=== PATIENT | female | born 1935 | race Caucasian/White ===

== ENCOUNTER → 2024-04-13 09:00 | Outpatient (REF) | payer MEDICARE, OTHER, SELFPAY ==
[2024-04-13 09:58] LABS: % Eosinophils 3.9 % (0-6); % Immature Granulocytes 0.2 % (0-0.5); % Lymphocytes 35.2 % (20.5-51.1); % Monocytes 7.7 % (1.7-9.3); Absolute Eosinophils 0.2 10^3/uL (0-0.7); Absolute Lymphocytes 1.5 10^3/uL (1.2-3.4); Absolute Monocytes 0.3 10^3/uL (0.1-0.6); Absolute Neutrophils 2.2 10^3/uL (1.4-6.5); Hematocrit 42.7 % (37.0-47.0); Hemoglobin 14.5 g/dL (12.0-16.0); Mean Corpuscular Volume 91.4 fL (81.0-99.0); Mean Platelet Volume 10.9 fL (7.4-10.4); Nucleated Red Blood Cells % 0 %; Platelet Count 136 10^3/uL (130-400); Red Blood Cell Count 4.67 10^6/uL (4.20-5.40); Red Cell Dist. Width 13.2 % (11.5-14.5); White Blood Cell Count 4.2 10^3/uL (4.8-10.8)
[2024-04-13 11:19] LABS: ALT (SGPT) 26 U/L (0-35); AST (SGOT) 37 U/L (14-36); Albumin 4.3 g/dl (3.5-5.0); Alkaline Phosphatase 52 U/L (38-126); Blood Urea Nitrogen 28 mg/dl (7-17); Calcium 10.1 mg/dl (8.4-10.2); Carbon Dioxide 31 mmol/L (22-30); Chloride 98 mmol/L (98-107); Glucose 91 mg/dl (70-99); HDL Cholesterol 64 mg/dl; LDL Cholesterol, Calculated 86 mg/dl; Potassium 4.4 mmol/L (3.5-5.1); Sodium 135 mmol/L (135-145); Total Bilirubin 0.7 mg/dl (0.2-1.3); Total Cholesterol 168 mg/dl (50-199); Total Protein 6.6 g/dl (6.3-8.2); Triglyceride 93 mg/dl (10-149); Very Low Density Lipoprotein 18 mg/dl (0-30); eGFR 40.05
[2024-04-13 11:38] LABS: TSH Reflex To Free T4 2.92 uIU/ml (0.47-4.68)
== END ==
LOC: REG 09:00
PROVIDERS: ATTENDING PHYSICIAN Internal Medicine
DX: I10 Essential (primary) hypertension (principal); I48.0 Paroxysmal atrial fibrillation; E78.2 Mixed hyperlipidemia; N18.32 Chronic kidney disease, stage 3b
CPT/HCPCS: 36415; 80053; 80061; 84443; 85025

== ENCOUNTER 2024-10-20 20:56 | Emergency (ER) | payer MEDICARE, OTHER, SELFPAY ==
[2024-10-20 21:03] VITALS: BP 137/59
[2024-10-20 21:14] VITALS: BMI 20.8
--- NOTE | 2024-10-20 22:12 | ED.GENMED ---
History of Present Illness
General
Chief Complaint: Fall
Source: patient and family (Daughter)
Exam Limitations: none
Time Seen by Provider: 10/20/24 22:03
Nursing documentation reviewed up to this point in time: agreed with
History of Present Illness
History of Present Illness:
88-year-old female with history as noted presents to the ER for evaluation after a fall. Patient was walking out of a restaurant with her family when she tripped on a curb and fell forward. She struck her face on the ground. She did not lose
consciousness. Family was able to help her to her feet, brought her to the emergency room to be evaluated. Patient had some transient epistaxis which has resolved; she has abrasions to her nose and chin and a laceration of her left eyebrow. She
has soreness in her nose and forehead but denies significant headache. Denies any neck pain. Denies any back pain. Denies any rib pain. Denies any abdominal pain. Denies any pain in her extremities. She normally walks with a cane. She is not
on any blood thinners.
Past History
Past History
ED Past Medical History: HTN
ED Past Surgical History: Tonsilectomy and Other (Left mastectomy)
Social History
Tobacco: Non-smoker
Alcohol: None
Personal:
Living: with family
Review of Systems
Review of Systems
All Other Systems: ROS reviewed and negative except as documented in HPI and ROS
EENT: Reports other (Nasal pain and swelling, transient epistaxis)
Respiratory: Denies trouble breathing
Cardiac: Denies chest pain
ABD/GI: Denies abdominal pain, nausea or vomiting
: Denies flank pain
Musculoskeletal: Denies joint pain, neck pain or back pain
Neurological: Denies dizzy or headache
Phy Exam
Physical Exam
Physical Exam:
General: Awake, alert, oriented x3; no acute distress
Head: Normocephalic, patient has 3 cm jagged laceration over the left eyebrow; abrasions on the nose and chin
Nose: She has swelling of the nasal bridge and tenderness to palpation; no septal hematoma, dried blood in nares but no active bleeding
Eyes: Conjunctiva normal, EOMI, pupils equal round and reactive to light bilaterally
Throat: Airway intact, handling secretions, tongue atraumatic, no signs of dental trauma
Neck: Trachea midline, no cervical spine tenderness
Back: No signs of trauma to the back or flank and no tenderness in the thoracic or lumbar spine
Lungs: Breathing comfortably with no distress
Heart: Regular rate; no chest wall tenderness
Abd: Soft, non distended, nontender
Neuro: No gross deficits
Skin: Lacerations and abrasions to the face as above; she has very minor abrasions to the knees
Extremities: Minor abrasions to the knees but no tenderness or swelling, rest of extremities are atraumatic without point tenderness and she allows for good range of motion at the upper and lower extremities without pain
Scores
Heart Failure Risk
Heart Failure Risk Score: Not Applicable
Heart Score for Chest Pain Patients
STEMI patient?: Not applicable
Withdrawal Assessment of Alcohol
Withdrawal Assessment Completed?: Not applicable
Course
Orders/Labs/Results
Orders:
Orders
10/20/24 22:05
CT Cervical Spine W/o Iv Contr Urgent
Comment:
Reason For Exam: fall with frontal trauma
CT Head W/o Iv Contrast Urgent
Comment:
Reason For Exam: fall with frontal trauma
Tetanus/Diphth/Acelpertussis [Adacel] 0.5 ml IM .ONCE ONE
10/20/24 22:11
CT Facial Bones W/o Iv Contras Urgent
Comment:
Reason For Exam: nasal swelling and pain s/p fall
Lidocaine/Epinephrine/Tetracai [Let Topical Anesthetic Gel] 3 ml TOPICAL NOW STA
Vital Signs
Initial and Last Documented VS:
Initial Vital Signs
Temp Pulse Resp BP Pulse Ox
36.4 C 50 18 137/59 96
10/20/24 21:03 10/20/24 21:03 10/20/24 21:03 10/20/24 21:03 10/20/24 21:03
Last Documented Vital Signs
Temp Pulse Resp BP Pulse Ox
36.4 C 50 18 137/59 96
10/20/24 21:03 10/20/24 21:03 10/20/24 21:03 10/20/24 21:03 10/20/24 21:03
Procedures
Laceration Closure
Left Eye brow:
Status of Wound: dirty
Size of Wound in cm: 3
Description of Wound Edges: ragged and surrounded by abrasion
Preparation: cleaned with saline
Anesthesia: Topical-LET
Revision/Debridement: minor revision
Wound exploration: extensive cleaning of contaminated wound
Type of Closure: layered closure
Skin Closure Material: 6-0 nylon (x5) and other (6-0 monocryl x1)
Number of sutures: 6
MDM/Problems Addressed
Differential Diagnosis Includes:
Traumatic head injury including subdural hematoma, subarachnoid hemorrhage, etc; concern for nasal fracture/facial bone fractures as well; will rule out cervical spine injury given age and mechanism
MDM/Problems Addressed:
88-year-old female presents after trip and fall with frontal head/facial trauma. She is not on blood thinners. Vitals and exam as above. She has no other apparent injuries. Will check CT of the head, cervical spine, facial bones. Update
tetanus. Will need to irrigate and repair left eyebrow laceration and clean and dress abrasions.
CT head, facial bones, cervical spine showed nasal fracture but no other acute pathology. Laceration repaired as documented procedure note. Abrasions cleaned and antibiotic ointment applied. Stable for discharge, spoke about follow-up plan and
return precautions. All questions answered.
*Radiology
Radiology exam reviewed: radiology read reviewed
*Pulse Oximetry
Patient hypoxic: no
*Critical Care Note
Total Time (30-74mins, 75-104mins- exclusive of procedures): Not Applicable
Data Reviewed
Source: patient and family
ED Attending Note
-
Portions of this chart may have been created with voice recognition software.� Occasional wrong word or��sound alike� substitutions may have occurred due to the inherent limitations of voice recognition software.
Discharge Plan
Departure
Patient Disposition: Home (Routine Discharge)
Date of Disposition: 10/21/24
Time of Disposition: 00:20
Patient with high blood pressure during this ER visit?: No
Discharge Problem:
Fracture, nasal, Abrasion of face, Laceration of eyebrow
Instructions: Laceration Repair With Stitches (DC)
Prescriptions:
No Action
bisoprolol-hydrochlorothiazide 1 TAB tablet
1 tab PO DAILY
simvastatin 20 MG tablet
20 mg PO QPM
quinapril 20 MG tablet
20 mg PO DAILY
calcium carbonate-vitamin D3 1 EACH tablet
2 ea PO BID
aspirin 81 MG tablet,chewable
81 mg PO DAILY 0RF
slowfson-mfi-CA-lycopen-lutein [Centrum Silver] 1 EACH tablet
1 ea PO DAILY
coenzyme Q10 [Co Q-10] 50 MG capsule
50 mg PO DAILY
furosemide 40 MG tablet
40 mg PO DAILY Qty: 7 0RF
amiodarone [Pacerone] 200 MG tablet
200 mg PO DAILY Qty: 90 1RF
potassium chloride [Klor-Con M20] 20 MEQ tablet,ER particles/crystals
20 meq PO DAILY Qty: 7 0RF
pantoprazole 40 MG tablet,delayed release (DR/EC)
40 mg PO DAILY Qty: 30 0RF
Rx Instructions:
take for 30 days then stop
oxycodone 5 MG tablet
5 mg PO Q6HPRN PRN (Reason: MODERATE PAIN) Qty: 40 0RF
Rx Instructions:
ongoing therapy for postoperative pain
warfarin [Jantoven] 5 MG tablet
5 mg PO QPM Qty: 90 0RF
Rx Instructions:
Take 5 mg daily unless otherwise instructed based on INR blood test
Referrals:
Jared Pollack I., DO [Family Provider] - Follow up in 1 week
Activity Restrictions/Additional Instructions:
Your stitches must be removed in 7 to 10 days. You can either return here to the emergency room, follow with your primary doctor, or go to urgent care have your stitches removed. He did have a minor nasal fracture noted on CT. You can follow-up
with your primary doctor in 1 to 2 weeks to have this reassessed in the meantime you should avoid blowing your nose, drinking with a straw, sneezing with your mouth closed. You should keep your abrasions clean, apply antibiotic ointment or Vaseline
for the next few days to keep them moist as they heal.
Thank you for visiting the Emergency Department at [facility].
1. Please schedule a follow up appointment as directed. Call first thing tomorrow morning to make an appointment.
2. If indicated, please take your medications as instructed and indicated on discharge paperwork.
3. If any of your symptoms do not improve, or persist, or become more severe within 6-12 hours, please return to the emergency department for further care.
4. Please return to the emergency department if you develop a headache, neck pain/stiffness, fever greater than 100.4F, chest pain, shortness of breath, persistent nausea, vomiting, slurred speech, difficulty walking, numbness/tingling, weakness,
signs of infection or any other symptoms that are worrisome to you.
Please call [phone] if you have any questions.
Interventions
Interventions:
*Risk Screen - Suicide Last Done: 10/20/24 21:03
*General Assessment Last Done: 10/20/24 21:03
*Neglect/Abuse Screening Last Done: 10/20/24 21:03
*ED COVID-19 Vaccine History Last Done: 10/20/24 21:14
ED-Musculoskeletal Assessment Last Done: 10/20/24 21:23
ED- Neurological Assessment Last Done: 10/20/24 21:23
ED-Skin Assessment Last Done: 10/20/24 21:23
Discharge Date and Time
Print Language: ESTONIAN
[2024-10-20] MEDS: ADACEL 0.5 ML IM (22:13)
[2024-10-20] MEDS: LET TOPICAL ANESTHETIC GEL 3 ML TOPICAL (22:13)
[2024-10-21 00:29] VITALS: BP 129/70
== END 2024-10-21 00:35 | disposition home or self-care (01) ==
LOC: EMR 20:56
PROVIDERS: EMERGENCY PHYSICIAN Emergency Medicine; FAMILY PHYSICIAN Internal Medicine
DX: S02.2XXA Fracture of nasal bones, initial encounter for closed fracture (principal); S01.122A Laceration with foreign body of left eyelid and periocular area, initial encounter; S00.31XA Abrasion of nose, initial encounter; S00.81XA Abrasion of other part of head, initial encounter; S80.212A Abrasion, left knee, initial encounter; S80.211A Abrasion, right knee, initial encounter; R04.0 Epistaxis; W10.1XXA Fall (on)(from) sidewalk curb, initial encounter; W00.2XXA Other fall from one level to another due to ice and snow, initial encounter; Y93.01 Activity, walking, marching and hiking; Y92.511 Restaurant or cafe as the place of occurrence of the external cause; Z23 Encounter for immunization; I10 Essential (primary) hypertension; Z90.12 Acquired absence of left breast and nipple; Z79.82 Long term (current) use of aspirin
CPT/HCPCS: 99284; 12052; 90471; 70450; 70486; 72125; 90715

== ENCOUNTER 2024-11-14 03:37 | Emergency (ER) | payer MEDICARE, OTHER, SELFPAY ==
[2024-11-14 03:38] VITALS: BP 172/64
[2024-11-14 04:10] LABS: % Basophils 1.1 % (0-2); % Eosinophils 5.4 % (0-6); % Immature Granulocytes 0.5 % (0-0.5); % Lymphocytes 37.6 % (20.5-51.1); % Monocytes 7.3 % (1.7-9.3); % Neutrophils 48.1 % (42.2-75.2); Absolute Basophils 0.1 10^3/uL (0-0.2); Absolute Eosinophils 0.3 10^3/uL (0-0.7); Absolute Lymphocytes 2.1 10^3/uL (1.2-3.4); Absolute Monocytes 0.4 10^3/uL (0.1-0.6); Absolute Neutrophils 2.7 10^3/uL (1.4-6.5); Hematocrit 42.1 % (37.0-47.0); Hemoglobin 14.4 g/dL (12.0-16.0); Mean Corp Hgb Conc. 34.2 g/dL (33.0-37.0); Mean Corpuscular Hgb 30.8 pg (27.0-31.0); Nucleated Red Blood Cells % 0 %; Platelet Count 132 10^3/uL (130-400); Red Blood Cell Count 4.68 10^6/uL (4.20-5.40); Red Cell Dist. Width 12.8 % (11.5-14.5); White Blood Cell Count 5.6 10^3/uL (4.8-10.8)
[2024-11-14 04:58] LABS: Blood Urea Nitrogen 35 mg/dl (7-17); Carbon Dioxide 27 mmol/L (22-30); Chloride 100 mmol/L (98-107); Glucose 104 mg/dl (70-99); Sodium 136 mmol/L (135-145); eGFR 48.94
[2024-11-14 05:39] VITALS: BP 171/66
--- NOTE | 2024-11-14 05:58 | ED.GENMED ---
History of Present Illness
General
Chief Complaint: Breathing Problem
Time Seen by Provider: 11/14/24 05:58
History of Present Illness
History of Present Illness:
TIME OF INITIAL ENCOUNTER: 6 AM
HPI: The patient is having trouble explaining exactly why EMS was called earlier. She states that she felt 'disoriented, but anywhere he was' and had some shortness of breath. She never had any chest pain. She has no chills or fevers and no
cough. She has no abdominal symptoms. She states that security at [place] check blood pressure but she is not sure what the blood pressure was. Upon arrival here she has no symptoms. No lower extremity edema or weight gain.
EXAM:
GENERAL: Well appearing in no distress
HEENT: Moist oral mucosa
CARDIOVASCULAR: No murmurs, normal heart rate, regular rhythm, No chest wall tenderness
PULMONARY: No respiratory distress, breath sounds are clear and equal
ABDOMEN: Soft with no peritoneal signs, no tenderness
NEUROLOGIC: Excellent strength all extremities, no coordination deficits
PSYCHIATRIC: Appropriate mental status, normal insight and judgement, very mild cognitive impairment
EXTREMITIES: Nontender, no edema, moves all extremities equally
SKIN: No rash, no lesions
NUMBER AND COMPLEXITY OF PROBLEMS ADDRESSED AT THE ENCOUNTER
� Chronic conditions affecting care: Remote smoking history, CAD, breast cancer
� Acute Exacerbation and/or Progression of Chronic Illness: This is an acute problem
� Differential Diagnosis includes: Acute anxiety attack, dysrhythmia, anemia
AMOUNT AND/OR COMPLEXITY OF DATA TO BE REVIEWED AND ANALYZED
� I performed an independent evaluation of and my interpretation is:
EKG: Sinus 58, LVH, nonspecific ST abnormality
CT:
X-rays:
Laboratory Studies: White count and hemoglobin are normal, creatinine 1.1 which is improved compared to baseline
Other:
� Review of other/old records:
� Clinical information was obtained by an independent historian: I spoke to daughter at bedside
� Prescriptions/Medications Considered but not given:
� Further testing considered but not performed: Consider chest x-ray however the breath sounds are perfectly clear and room air sats are 97%
RISK OF COMPLICATIONS AND/OR MORBIDITY OR MORTALITY OF PATIENT MANAGEMENT
� Social determinants of health affecting care: Lives at [facility]
� Discussion with other providers:
� Escalation of care including admission/observation vs risk of discharge considered: The patient is normotensive with room air sats of 97% and no symptoms. She is sinus on the monitor. Unclear etiology of earlier symptoms but
the patient has remained symptom-free throughout her stay in the emergency department.
ANY OTHER UPDATES:
Past History
Past History
ED Past Medical History: HTN
ED Past Surgical History: Tonsilectomy and Other (Left mastectomy)
Social History
Tobacco: Non-smoker
Alcohol: None
Personal:
Living: with family
Phy Exam
Physical Exam
Physical Exam:
See HPI
Scores
Heart Failure Risk
Heart Failure Risk Score: Not Applicable
Course
Orders/Labs/Results
Orders:
Orders
11/14/24 03:52
ECG [Electrocardiogram (*1)] Urgent
Reason for Study: Shortness of Breath
EKG- Treatment ONCE
11/14/24 03:57
Basic Metabolic Panel Urgent
Complete Blood Count/With Diff Urgent
Abnormal Lab Results
11/14/24
03:57
MPV 11.0 H fL
(7.4-10.4)
BUN 35 H mg/dl
(7-17)
Creatinine 1.1 H mg/dL
(0.6-1.0)
Glucose 104 H mg/dl
(70-99)
11/14/24 03:57
11/14/24 03:57
Vital Signs
Initial and Last Documented VS:
Initial Vital Signs
Temp Pulse Resp BP Pulse Ox
36.2 C 58 20 172/64 98
11/14/24 03:38 11/14/24 03:38 11/14/24 03:38 11/14/24 03:38 11/14/24 03:38
Last Documented Vital Signs
Temp Pulse Resp BP Pulse Ox
36.2 C 48 17 136/61 98
11/14/24 03:38 11/14/24 06:00 11/14/24 06:00 11/14/24 06:00 11/14/24 05:45
*Critical Care Note
Total Time (30-74mins, 75-104mins- exclusive of procedures): Not Applicable
ED Attending Note
-
Portions of this chart may have been created with voice recognition software.� Occasional wrong word or��sound alike� substitutions may have occurred due to the inherent limitations of voice recognition software.
Discharge Plan
Departure
Prescriptions:
No Action
bisoprolol-hydrochlorothiazide 1 TAB tablet
1 tab PO DAILY
simvastatin 20 MG tablet
20 mg PO QPM
quinapril 20 MG tablet
20 mg PO DAILY
calcium carbonate-vitamin D3 1 EACH tablet
2 ea PO BID
aspirin 81 MG tablet,chewable
81 mg PO DAILY 0RF
ouvhatqj-utm-NL-lycopen-lutein [Centrum Silver] 1 EACH tablet
1 ea PO DAILY
coenzyme Q10 [Co Q-10] 50 MG capsule
50 mg PO DAILY
furosemide 40 MG tablet
40 mg PO DAILY Qty: 7 0RF
amiodarone [Pacerone] 200 MG tablet
200 mg PO DAILY Qty: 90 1RF
potassium chloride [Klor-Con M20] 20 MEQ tablet,ER particles/crystals
20 meq PO DAILY Qty: 7 0RF
pantoprazole 40 MG tablet,delayed release (DR/EC)
40 mg PO DAILY Qty: 30 0RF
Rx Instructions:
take for 30 days then stop
oxycodone 5 MG tablet
5 mg PO Q6HPRN PRN (Reason: MODERATE PAIN) Qty: 40 0RF
Rx Instructions:
ongoing therapy for postoperative pain
warfarin [Jantoven] 5 MG tablet
5 mg PO QPM Qty: 90 0RF
Rx Instructions:
Take 5 mg daily unless otherwise instructed based on INR blood test
Referrals:
Jared Pollack I., DO [Family Provider] -
Interventions
Interventions:
*Risk Screen - Suicide Last Done: 11/14/24 03:51
*Neglect/Abuse Screening Last Done: 11/14/24 03:51
Discharge Date and Time
Print Language: ALBANIAN
[2024-11-14 06:00] VITALS: BP 136/61
[2024-11-14 06:51] VITALS: BP 141/85
== END 2024-11-14 06:52 | disposition home or self-care (01) ==
LOC: EMR 03:37
PROVIDERS: Emergency Medicine; EMERGENCY PHYSICIAN Emergency Medicine; FAMILY PHYSICIAN Internal Medicine
DX: R06.02 Shortness of breath (principal); I10 Essential (primary) hypertension; I25.10 Atherosclerotic heart disease of native coronary artery without angina pectoris; Z90.12 Acquired absence of left breast and nipple; Z87.891 Personal history of nicotine dependence; Z85.3 Personal history of malignant neoplasm of breast
CPT/HCPCS: 99284; 80048; 85025; 93005

== ENCOUNTER → 2025-04-15 08:05 | Outpatient (REF) | payer MEDICARE, OTHER, SELFPAY ==
[2025-04-15 08:44] LABS: Hematocrit 43.1 % (37.0-47.0); Hemoglobin 14.3 g/dL (12.0-16.0); Mean Corp Hgb Conc. 33.2 g/dL (33.0-37.0); Mean Corpuscular Volume 91.9 fL (81.0-99.0); Nucleated Red Blood Cells % 0 %; Platelet Count 145 10^3/uL (130-400); Red Cell Dist. Width 13.2 % (11.5-14.5)
[2025-04-15 09:09] LABS: ALT (SGPT) 18 U/L (0-35); AST (SGOT) 27 U/L (14-36); Albumin 4.5 g/dl (3.5-5.0); Alkaline Phosphatase 49 U/L (38-126); Blood Urea Nitrogen 27 mg/dl (7-17); Calcium 10.1 mg/dl (8.4-10.2); Carbon Dioxide 33 mmol/L (22-30); Chloride 101 mmol/L (98-107); Glucose 100 mg/dl (70-99); HDL Cholesterol 69 mg/dl; LDL Cholesterol, Calculated 152 mg/dl; Potassium 4.0 mmol/L (3.5-5.1); Sodium 138 mmol/L (135-145); Total Protein 7.1 g/dl (6.3-8.2); Very Low Density Lipoprotein 26 mg/dl (0-30); eGFR 43.81
== END ==
LOC: REG 08:05
PROVIDERS: ATTENDING PHYSICIAN Internal Medicine
DX: E78.2 Mixed hyperlipidemia (principal); I10 Essential (primary) hypertension; N18.32 Chronic kidney disease, stage 3b
CPT/HCPCS: 36415; 80053; 80061; 85025